=== PATIENT | male | born 1990 | race American Indian/Alaskan Native ===

== ENCOUNTER 2016-08-31 14:00 | Emergency (ER) | payer SELFPAY | END 2016-08-31 14:01 | disposition left against medical advice (07) | LOC: ED 14:00 | DX: Z53.21 Procedure and treatment not carried out due to patient leaving prior to being seen by health care provider (principal) ==

== ENCOUNTER 2016-09-01 07:43 | Emergency (ER) | payer SELFPAY ==
[2016-09-01 08:03] VITALS: BP 150/91
--- NOTE | 2016-09-01 10:45 | Emergency Department Report ---
HPI - General Chief Complaint: Upper Respiratory Infection Time Seen by Provider: 09/01/16 09:48 - HPI HPI: 26-year-old male presents to ED complaining of yellowish mucus productive cough 2 days. She said the past 2 days he said some generalized body pain, mild fever as well as intermittent coughing throughout the day. Patient states early this morning he took a Mucinex for his symptoms which gave him some relief. Patient admits some chills and feeling cold. Patient denies nausea/vomiting/chest pain/shortness of breathheadaches/ dizziness or any other problems. ED Past Medical Hx - Past Medical History Previous Medical History?: No - Surgical History Past Surgical History?: No - Social History Smoking Status: Current Every Day Smoker - Medications Home Medications: Home Medications Medication Instructions Recorded Confirmed Last Taken Type metroNIDAZOLE [Flagyl] 2,000 mg PO DAILY #4 tablet 11/07/14 Unknown Rx D-Methorphan/PE/Acetaminophen 1 each PO TID #24 tablet 09/01/16 Unknown Rx [Tylenol Cold Multi-Symp Caplet] Ibuprofen [Motrin] 400 mg PO Q8H PRN #20 tablet 09/01/16 Unknown Rx guaiFENesin/CODEINE [Robitussin AC] 5 ml PO Q6H #90 oral.liqd 09/01/16 Unknown Rx ED Review of Systems ROS: Stated complaint: FLU SYMPTOMS Other details as noted in HPI Constitutional: denies: chills, fever Eyes: denies: eye pain, eye discharge, vision change ENT: congestion. denies: ear pain, throat pain, dental pain, hearing loss, epistaxis Respiratory: cough. denies: shortness of breath, wheezing Cardiovascular: denies: chest pain, palpitations Endocrine: no symptoms reported Gastrointestinal: denies: abdominal pain, nausea, vomiting, diarrhea, constipation, hematemesis Genitourinary: denies: urgency, dysuria Musculoskeletal: denies: back pain, joint swelling, arthralgia Skin: denies: rash, lesions Neurological: denies: headache, weakness, paresthesias Psychiatric: denies: anxiety, depression Hematological/Lymphatic: denies: easy bleeding, easy bruising Physical Exam - Physical Exam Vital Signs: Vital Signs 09/01/16 07:56 Temperature 98.9 F Pulse Rate 73 Blood Pressure 150/91 O2 Sat by Pulse 99 Oximetry Physical Exam: GENERAL: Alert and oriented x3, no apparent distress, Normal Gait, atraumatic. HEAD: Head is normocephalic and a-traumatic. EYES: Extra ocular muscles are intact. Pupils are equal, round, and reactive to light and accommodation. EARS: symetrical, atraumatic, non tender, ear canal clear and moderate cerumen, tympanic membrance non inflamed. gross auditory nml bilaterally. NOSE: Nose symetrical, Nontender,Nares appeared normal. MOUTH:Mouth is well hydrated and without lesions. Tonsils nonerythematous or swollen, Uvula midline, Tongue not elevated. Mucous membranes are moist. Posterior pharynx clear, no exudate or lesions. Patent airways. NECK: Supple. Non edematous, No carotid bruits. No lymphadenopathy or thyromegaly. LUNGS: Symetrical with respiration, No wheezing, no rales or crackles, CTAB. HEART: S1, S2 present, regular rate and rhythm without murmur, no rubs, no gallops. ABDOMEN: No organomegaly was noted,Positive bowel sounds, soft, and non- distended. . Nontender to palpation on all Quadrants, NO CVA tenderness UROGENITAL: No scrotal mass, Scrotum non tender to palpation bilaterally, no hernia, no scars or penile discharge. EXTREMITIES/MUSCULOSKELETAL: No cyanosis, clubbing, rash, lesions or edema. Full ROM bilaterally. UE/LE Pulses 2+ bilaterally. NEUROLOGIC: No focal Deficit, Cranial nerves II through XII are grossly intact. No loss of sensation, PSYCHIATRIC: Mood is congruent with affect, denies suicidal or homicidal ideations. SKIN: Warm and dry, No lesions, No ulceration or induration present. ED Course Vital Signs 09/01/16 07:56 Temperature 98.9 F Pulse Rate 73 Blood Pressure 150/91 O2 Sat by Pulse 99 Oximetry ED Medical Decision Making - Medical Decision Making 26-year-old male presents with flulike symptoms. ED course: Discussed the patient rest, hydration, vitamin C daily. Discussed over-the- counter medication for symptomatic relief Discussed take medication as prescribed. Discussed the follow up with primary care physician. Vital signs are stable. Patient is in no acute respiratory distress. Critical care attestation.: If time is entered above; I have spent that time in minutes in the direct care of this critically ill patient, excluding procedure time. ED Disposition Clinical Impression: Flu-like symptoms, Bronchitis Disposition: DISCHARGED TO HOME OR SELFCARE Is pt being admited?: No Does the pt Need Aspirin: No Condition: Stable Instructions: Acute Bronchitis (ED), Upper Respiratory Infection (ED), Influenza (ED) Prescriptions: D-Methorphan/PE/Acetaminophen [Tylenol Cold Multi-Symp Caplet] 1 each PO TID # 24 tablet guaiFENesin/CODEINE [Robitussin AC] 5 ml PO Q6H #90 oral.liqd Ibuprofen [Motrin] 400 mg PO Q8H PRN #20 tablet PRN Reason: Pain Referrals: PRIMARY CAREMD [Primary Care Provider] - 3-5 Days MADISYN HERMAN MD [Referring] - 3-5 Days ANTOINETTE PONCE MD [Referring] - 3-5 Days Forms: Accompanied Note, Work/School Release Form(ED) Time of Disposition: 10:50
== END 2016-09-01 11:15 | disposition home or self-care (01) ==
LOC: ED 07:43
DX: J40 Bronchitis, not specified as acute or chronic (principal); F17.200 Nicotine dependence, unspecified, uncomplicated
CPT/HCPCS: 99282

== ENCOUNTER 2016-11-21 13:30 | Emergency (ER) | payer SELFPAY | END 2016-11-21 13:46 | disposition home or self-care (01) | LOC: ED 13:30 | DX: T15.92XA Foreign body on external eye, part unspecified, left eye, initial encounter (principal); W45.8XXA Other foreign body or object entering through skin, initial encounter; Y93.89 Activity, other specified; Y99.9 Unspecified external cause status; Y92.89 Other specified places as the place of occurrence of the external cause; Z53.21 Procedure and treatment not carried out due to patient leaving prior to being seen by health care provider ==

== ENCOUNTER 2017-08-17 16:11 | Emergency (ER) | payer OTHER ==
[2017-08-17 16:25] VITALS: BP 146/88
[2017-08-17] MEDS ORDERED: ZITHROMAX PO ONE (17:26)
[2017-08-17] MEDS ORDERED: BOOSTRIX IM ONE (17:26)
[2017-08-17] MEDS ORDERED: ROCEPHIN IM ONE (17:27)
[2017-08-17] MEDS ORDERED: XYLOCAINE 1% MPF 5 mL INFILTRATI ONE (17:27)
--- NOTE | 2017-08-17 17:30 | Emergency Department Report ---
ED Male HPI - General Chief complaint: Urogenital-Male Stated complaint: BURNING/DISCHARGE Time Seen by Provider: 08/17/17 17:26 Source: patient Mode of arrival: Ambulatory Limitations: No Limitations - History of Present Illness Initial comments: 27-year-old male past medical history none presents with complaint of right middle finger laceration. Patient states that the trunk of his car fell on his middle finger. Small laceration on the back of right middle finger overlying the PIP. It occurred 3 days ago. Patient also states he has dysuria and is concerned he was exposed to chlamydia or gonorrhea by a sexual encounter with the last 2 weeks. States he is having burning with urination and penile discharge. Patient unaware of tetanus status. MD Complaint: testicle pain, testicle swelling Onset/Timin -: days(s) Location: penis Severity: moderate Worsens with: urination - Related Data Previous Rx's Medication Instructions Recorded Last Taken Type metroNIDAZOLE [Flagyl] 2,000 mg PO DAILY #4 tablet 11/07/14 Unknown Rx D-Methorphan/PE/Acetaminophen 1 each PO TID #24 tablet 09/01/16 Unknown Rx [Tylenol Cold Multi-Symp Caplet] Ibuprofen [Motrin] 400 mg PO Q8H PRN #20 tablet 09/01/16 Unknown Rx guaiFENesin/CODEINE [Robitussin AC] 5 ml PO Q6H #90 oral.liqd 09/01/16 Unknown Rx Ibuprofen [Motrin] 800 mg PO Q8HR PRN #30 tablet 08/17/17 Unknown Rx metroNIDAZOLE [Metronidazole] 1,000 mg PO BID #4 tablet 08/17/17 Unknown Rx Allergies Allergy/AdvReac Type Severity Reaction Status Date / Time No Known Allergies Allergy Unverified 08/17/17 16:24 ED Review of Systems ROS: Stated complaint: BURNING/DISCHARGE Other details as noted in HPI Constitutional: denies: chills, fever Eyes: denies: eye pain, eye discharge, vision change ENT: denies: ear pain, throat pain Respiratory: denies: cough, shortness of breath, wheezing Cardiovascular: denies: chest pain, palpitations Endocrine: no symptoms reported Gastrointestinal: denies: abdominal pain, nausea, diarrhea Genitourinary: as per HPI, urgency, dysuria, frequency, discharge Musculoskeletal: denies: back pain, joint swelling, arthralgia Skin: as per HPI. denies: rash, lesions Neurological: denies: headache, weakness, paresthesias Psychiatric: denies: anxiety, depression Hematological/Lymphatic: denies: easy bleeding, easy bruising ED Past Medical Hx - Past Medical History Previous Medical History?: No - Surgical History Past Surgical History?: No - Social History Smoking Status: Current Every Day Smoker Substance Use Type: None - Medications Home Medications: Home Medications Medication Instructions Recorded Confirmed Last Taken Type metroNIDAZOLE [Flagyl] 2,000 mg PO DAILY #4 tablet 11/07/14 Unknown Rx D-Methorphan/PE/Acetaminophen 1 each PO TID #24 tablet 09/01/16 Unknown Rx [Tylenol Cold Multi-Symp Caplet] Ibuprofen [Motrin] 400 mg PO Q8H PRN #20 tablet 09/01/16 Unknown Rx guaiFENesin/CODEINE [Robitussin AC] 5 ml PO Q6H #90 oral.liqd 09/01/16 Unknown Rx Ibuprofen [Motrin] 800 mg PO Q8HR PRN #30 tablet 08/17/17 Unknown Rx metroNIDAZOLE [Metronidazole] 1,000 mg PO BID #4 tablet 08/17/17 Unknown Rx ED Physical Exam - General Limitations: No Limitations General appearance: alert, in no apparent distress - Head Head exam: Present: atraumatic, normocephalic - Eye Eye exam: Present: normal appearance, PERRL, EOMI - ENT ENT exam: Present: mucous membranes moist - Neck Neck exam: Present: normal inspection - Respiratory Respiratory exam: Present: normal lung sounds bilaterally. Absent: respiratory distress - Cardiovascular Cardiovascular Exam: Present: regular rate, normal rhythm. Absent: systolic murmur, diastolic murmur, rubs, gallop - GI/Abdominal GI/Abdominal exam: Present: soft, normal bowel sounds - Rectal Rectal exam: Present: deferred - Extremities Exam Extremities exam: Present: normal inspection - Expanded Upper Extremity Exam Right Elbow exam: Present: normal inspection, full ROM Forearm Wrist exam: Present: normal inspection, full ROM Hand Wrist exam: Present: normal inspection, full ROM Neuro motor exam: Present: wrist extension intact, thumb opposition intact, thumb IP flexion intact, thumb adduction intact, fingers 2-5 abduction intact Neurosensory exam: Present: 2-point discrimination Vascular: Present: normal capillary refill, radial pulse, brachial pulse, ulnar pulse - Back Exam Back exam: Present: normal inspection - Neurological Exam Neurological exam: Present: alert, oriented X3, CN II-XII intact, normal gait - Psychiatric Psychiatric exam: Present: normal affect, normal mood - Skin Skin exam: Present: warm, dry, intact, normal color. Absent: rash ED Course Vital Signs 08/17/17 16:21 Temperature 98.4 F Pulse Rate 16 L Respiratory 16 Rate Blood Pressure 146/88 O2 Sat by Pulse 98 Oximetry - Laceration /Wound Repair Right Distal Finger Wound Location: upper extremity Wound Length (cm): 2 Wound's Depth, Shape: linear Wound Repaired With: Steri-strips ED Medical Decision Making - Medical Decision Making A/P: Urethritis 1-patient empirically treated with azithromycin and ceftriaxone 2-GC cultures sent 3-patient given follow-up with primary care 4- course of metronidazole Critical care attestation.: If time is entered above; I have spent that time in minutes in the direct care of this critically ill patient, excluding procedure time. ED Disposition Clinical Impression: Urethritis Finger laceration Qualifiers: Encounter type: initial encounter Finger: middle finger Damage to nail status: without damage Foreign body presence: without foreign body Laterality: right Qualified Code(s): S61.212A - Laceration without foreign body of right middle finger without damage to nail, initial encounter Disposition: TO HOME OR SELFCARE Is pt being admited?: No Does the pt Need Aspirin: No Condition: Stable Instructions: Gonococcal Urethritis (ED), Nonspecific Urethritis in Men (ED), Acute Wound Care (ED), Finger Laceration (ED) Prescriptions: Ibuprofen [Motrin] 800 mg PO Q8HR PRN #30 tablet PRN Reason: Pain metroNIDAZOLE [Metronidazole] 1,000 mg PO BID #4 tablet Referrals: [facility] [Outside] - 3-5 Days [facility] [Outside] - 3-5 Days Forms: STI Treatment and Prevention, Work/School Release Form(ED) Time of Disposition: 17:30
== END 2017-08-17 18:04 | disposition home or self-care (01) ==
LOC: ED 16:11
DX: S61.212A Laceration without foreign body of right middle finger without damage to nail, initial encounter (principal); N34.2 Other urethritis; F17.200 Nicotine dependence, unspecified, uncomplicated; X58.XXXA Exposure to other specified factors, initial encounter; Y93.89 Activity, other specified; Y92.89 Other specified places as the place of occurrence of the external cause; Y99.8 Other external cause status
CPT/HCPCS: 90471; 90715; 96372; 99282; J0696

== ENCOUNTER 2017-11-23 12:40 | Emergency (ER) | payer OTHER ==
[2017-11-23 12:55] VITALS: BP 141/80
--- NOTE | 2017-11-23 16:05 | Emergency Department Report ---
ED Fever HPI - General Chief Complaint: Nausea/Vomiting/Diarrhea Stated Complaint: CHILLS/LIGHT HEADED/COUGH Time Seen by Provider: 11/23/17 15:52 Source: patient Exam Limitations: no limitations - History of Present Illness Initial Comments: 27-year-old male with no specific past medical or surgical history presents to the hospital with infectious symptoms that started today while at work. Patient developed hot and cold flashes, right sided throat pain, generalized body aches, had 2 episodes of nausea vomiting. No diarrhea reported. Generalized body aches initially reported to be 8/10 in intensity but patient took [facility] prior to arrival in now feels better with resolution of all symptoms. Patient denies dysuria, cough, abdominal pain, sick contacts, or recent international travel. ED Review of Systems ROS: Stated complaint: CHILLS/LIGHT HEADED/COUGH Other details as noted in HPI Comment: All other systems reviewed and negative ED Past Medical Hx - Past Medical History Previous Medical History?: No - Surgical History Past Surgical History?: No - Social History Smoking Status: Current Every Day Smoker Substance Use Type: Marijuana - Medications Home Medications: Home Medications Medication Instructions Recorded Confirmed Last Taken Type metroNIDAZOLE [Flagyl] 2,000 mg PO DAILY #4 tablet 11/07/14 Unknown Rx D-Methorphan/PE/Acetaminophen 1 each PO TID #24 tablet 09/01/16 Unknown Rx [Tylenol Cold Multi-Symp Caplet] Ibuprofen [Motrin] 400 mg PO Q8H PRN #20 tablet 09/01/16 Unknown Rx guaiFENesin/CODEINE [Robitussin AC] 5 ml PO Q6H #90 oral.liqd 09/01/16 Unknown Rx Ibuprofen [Motrin] 800 mg PO Q8HR PRN #30 tablet 08/17/17 Unknown Rx metroNIDAZOLE [Metronidazole] 1,000 mg PO BID #4 tablet 08/17/17 Unknown Rx Ondansetron [Zofran Odt] 4 mg PO Q8HR PRN #15 tab.rapdis 11/23/17 Unknown Rx ED Physical Exam - General Limitations: No Limitations - Other Other exam information: General: No limitations, patient is alert in no acute distress Head exam: Atraumatic, normocephalic Eyes exam: Normal appearance ENT: Moist mucous membrane, normal oropharynx, no exudates Neck exam: Normal inspection, full range of motion, no meningismus nontender Respiratory exam: Clear to auscultation bilateral, no wheezes, rales, crackles Cardiovascular: Normal rate and rhythm, normal heart sounds Abdomen: Soft, nondistended, and nontender, with normal bowel sounds, no rebound, or guarding Extremity: Full range of motion normal inspection no deformity Back: Normal Inspection, full range of motion, no tenderness Neurologic: Alert, oriented x3, cranial nerves intact, no motor or sensory deficit Psychiatric: normal affect, normal mood Skin: Warm, dry, intact ED Course Vital Signs 11/23/17 12:51 Temperature 98.4 F Pulse Rate 61 Respiratory 20 Rate Blood Pressure 141/80 O2 Sat by Pulse 100 Oximetry ED Medical Decision Making - Medical Decision Making Patient will be be treated symptomatically for viral syndrome and states he does not like taking medication. Encouraged to continue [id number] medications for symptoms of Zofran prescribed in case he develops recurrent nausea or vomiting. - Differential Diagnosis viral syndrome, gastroenteritis, appendicitis, pharyngitis, influenza Critical Care Time: No Critical care attestation.: If time is entered above; I have spent that time in minutes in the direct care of this critically ill patient, excluding procedure time. ED Disposition Clinical Impression: Viral syndrome Disposition: DC-01 TO HOME OR SELFCARE Is pt being admited?: No Does the pt Need Aspirin: No Condition: Stable Instructions: Viral Syndrome (ED) Additional Instructions: Take Motrin or Tylenol as needed for pain or fever. You may also take over-the- counter medication to treat your current symptoms. Zofran has been prescribed to take if needed for nausea and vomiting. Follow with your doctor or the doctor provided. Return if symptoms worsen as indicated by your discharge instructions. Prescriptions: Ondansetron [Zofran Odt] 4 mg PO Q8HR PRN #15 tab.rapdis PRN Reason: Nausea And Vomiting Referrals: PRIMARY CARE, [Primary Care Provider] - 3-5 Days DAI PYLE MD [Staff Physician] - 3-5 Days Forms: Work/School Release Form(ED) Time of Disposition: 16:06
== END 2017-11-23 16:00 | disposition home or self-care (01) ==
LOC: ED 12:40
DX: B34.9 Viral infection, unspecified (principal); F17.200 Nicotine dependence, unspecified, uncomplicated; F12.90 Cannabis use, unspecified, uncomplicated
CPT/HCPCS: 99282